=== PATIENT | female | born 1985 | race American Indian/Alaskan Native ===

== ENCOUNTER 2016-11-17 09:02 | Emergency (ER) | payer SELFPAY ==
[2016-11-17] MEDS ORDERED: DEPO-MEDROL IM ONE (13:04)
[2016-11-17] MEDS ORDERED: TORADOL IM ONE (13:04)
--- NOTE | 2016-11-17 13:09 | Emergency Department Report ---
ED General Adult HPI - General Chief complaint: Sore Throat Stated complaint: SORE THROAT/BODY ACHES/FEVER Time Seen by Provider: 11/17/16 12:15 Source: patient Mode of arrival: Ambulatory Limitations: No Limitations - History of Present Illness Initial comments: Patient complains of sore throat x one day. States it's painful to swallow, and throat feels like it's closing. Reports feeling feverish, neck and shoulder ache. Denies SOB, chest pain, cough, abdominal flank pain, symptoms. denies known sick contacts. Denies self treatment prior to ED presentation. LMP 4 years ago on Mirena. - Related Data Previous Rx's Medication Instructions Recorded Last Taken Type Amoxicillin/K Clav Tab [Augmentin 1 tab PO Q12HR #20 tab 11/17/16 Unknown Rx 875 mg] Allergies Allergy/AdvReac Type Severity Reaction Status Date / Time No Known Allergies Allergy Verified 11/17/16 09:36 ED Review of Systems ROS: Stated complaint: SORE THROAT/BODY ACHES/FEVER Other details as noted in HPI Comment: All other systems reviewed and negative ED Past Medical Hx - Past Medical History Previous Medical History?: No - Surgical History Hx Breast Surgery: Yes (reduction) - Social History Smoking Status: Never Smoker Substance Use Type: None - Medications Home Medications: Home Medications Medication Instructions Recorded Confirmed Last Taken Type Amoxicillin/K Clav Tab [Augmentin 1 tab PO Q12HR #20 tab 11/17/16 Unknown Rx 875 mg] ED Physical Exam - General Limitations: No Limitations General appearance: alert, in no apparent distress - Head Head exam: Present: atraumatic, normocephalic - Eye Eye exam: Present: normal appearance, PERRL, EOMI. Absent: scleral icterus, conjunctival injection, periorbital swelling, periorbital tenderness - ENT ENT exam: Present: mucous membranes moist, TM's normal bilaterally, normal external ear exam. Absent: normal orophraynx (b/l tonsillopharyngeal edema, erythema, and patchy exudates.) - Neck Neck exam: Present: normal inspection, full ROM, lymphadenopathy (b/l). Absent : tenderness, meningismus - Respiratory Respiratory exam: Present: normal lung sounds bilaterally. Absent: respiratory distress, wheezes, rales, rhonchi, stridor, accessory muscle use, decreased breath sounds, prolonged expiratory - Cardiovascular Cardiovascular Exam: Present: regular rate, normal rhythm - GI/Abdominal GI/Abdominal exam: Present: soft. Absent: distended, tenderness - Extremities Exam Extremities exam: Present: normal inspection, full ROM, normal capillary refill. Absent: pedal edema, joint swelling - Back Exam Back exam: Present: normal inspection, full ROM. Absent: tenderness, CVA tenderness (R), CVA tenderness (L) - Neurological Exam Neurological exam: Present: alert, oriented X3, normal gait, reflexes normal. Absent: motor sensory deficit - Psychiatric Psychiatric exam: Present: normal affect, normal mood - Skin Skin exam: Present: warm, dry, intact, normal color. Absent: rash, cyanosis, diaphoretic, erythema, urticaria, vesicles, pallor ED Course Vital Signs 11/17/16 09:37 Temperature 98.4 F Pulse Rate 102 H Respiratory 16 Rate Blood Pressure 129/82 O2 Sat by Pulse 99 Oximetry ED Medical Decision Making - Medical Decision Making 30-year-old female with acute strep pharyngitis. Patient is stable. She received Toradol 15 mg and Depo-Medrol 40 mg both IM. She will be DC'd on oral Augmentin (see rx). patient education, follow-up/referral, return instructions provided. She verbalized understanding and is agreeable to plan. Critical care attestation.: If time is entered above; I have spent that time in minutes in the direct care of this critically ill patient, excluding procedure time. ED Disposition Clinical Impression: Pharyngitis Qualifiers: Pharyngitis/tonsillitis etiology: streptococcus Qualified Code(s): J02.0 - Streptococcal pharyngitis Disposition: DISCHARGED TO HOME OR SELFCARE Is pt being admited?: No Does the pt Need Aspirin: No Condition: Stable Instructions: Strep Throat (ED) Additional Instructions: Follow instructions for care. Use medication as prescribed. May take OTC Tylenol or Motrin as needed for fever/body aches. Follow-up with your PCP for follow-up. Return to ED for new or worsening condition. Prescriptions: Amoxicillin/K Clav Tab [Augmentin 875 mg] 1 tab PO Q12HR #20 tab Referrals: PRIMARY CARE, [Primary Care Provider] - 2-3 Days [facility] [Outside] - 2-3 Days
[2016-11-17 14:30] VITALS: BP 116/67
== END 2016-11-17 13:45 | disposition home or self-care (01) ==
LOC: ED 09:02
DX: J02.0 Streptococcal pharyngitis (principal)
CPT/HCPCS: 87430; 96372; 99282; J1040; J1885

== ENCOUNTER 2019-10-17 09:46 | Emergency (ER) | payer OTHER, MEDICAID ==
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
[2019-10-17 11:56] VITALS: BP 130/90
== END 2019-10-17 11:55 | disposition home or self-care (01) ==
LOC: ED 09:46
DX: M25.512 Pain in left shoulder (principal); V49.49XA Driver injured in collision with other motor vehicles in traffic accident, initial encounter; X58.XXXA Exposure to other specified factors, initial encounter; Y93.89 Activity, other specified; Y92.488 Other paved roadways as the place of occurrence of the external cause; Y99.8 Other external cause status
CPT/HCPCS: 99282

== ENCOUNTER 2021-11-28 09:00 | Emergency (ER) | payer MEDICAID ==
[2021-11-28 09:22] VITALS: BP 139/88
[2021-11-28] MEDS ORDERED: PANTOPRAZOLE 40 MG INJ IV ONE (09:55)
[2021-11-28] MEDS ORDERED: ONDANSETRON 4 MG/2 ML INJ IV ONE (09:55)
[2021-11-28] MEDS ORDERED: FAMOTIDINE 20 MG/2 ML INJ IV ONE (09:55)
--- NOTE | 2021-11-28 10:09 | Emergency Department Report ---
ED Abdominal Pain HPI - General Chief Complaint: Abdominal Pain Stated Complaint: VOMITING BLOOD Time Seen by Provider: 11/28/21 09:46 Source: patient Mode of arrival: Ambulatory Limitations: No Limitations - History of Present Illness Initial Comments: 36-year-old obese female with no significant past medical history presents to the hospital complaining of abdominal pain, nausea, and vomiting blood x2. Patient states she only had coffee this morning. She developed moderate to severe sharp mid upper abdominal pain. She then vomited her coffee with specks of blood. Patient proceeded to go to work and continued to have intermittent upper 5/10 dull burning stomach ache without aggravating or alleviating factors. She had a second episode of vomiting with a increased amount of blood mixed with coffee. Patient states currently pain has resolved but he continues to come and go. She denies previous abdominal surgeries, endoscopy procedures, m sita, hematochezia, diarrhea, dysuria, or urinary frequency - Related Data Previous Rx's Medication Instructions Recorded Last Taken Type Amoxicillin/K Clav Tab [Augmentin 1 tab PO Q12HR #20 tab 11/17/16 Unknown Rx 875 mg] Cyclobenzaprine [Flexeril] 10 mg PO QHS PRN #20 tablet 10/17/19 Unknown Rx Ibuprofen [Motrin 800 MG tab] 800 mg PO Q8HR PRN #30 tablet 10/17/19 Unknown Rx Allergies Allergy/AdvReac Type Severity Reaction Status Date / Time No Known Allergies Allergy Verified 10/17/19 09:48 ED Review of Systems ROS: Stated complaint: VOMITING BLOOD Other details as noted in HPI Comment: All other systems reviewed and negative ED Past Medical Hx - Past Medical History Previous Medical History?: No - Surgical History Past Surgical History?: Yes Hx Breast Surgery: Yes (reduction) - Social History Smoking Status: Never Smoker - Medications Home Medications: Home Medications Medication Instructions Recorded Confirmed Last Taken Type Amoxicillin/K Clav Tab [Augmentin 1 tab PO Q12HR #20 tab 11/17/16 Unknown Rx 875 mg] Cyclobenzaprine [Flexeril] 10 mg PO QHS PRN #20 tablet 10/17/19 Unknown Rx Ibuprofen [Motrin 800 MG tab] 800 mg PO Q8HR PRN #30 tablet 10/17/19 Unknown Rx ED Physical Exam - General Limitations: No Limitations - Other Other exam information: General: No acute distress Head: Atraumatic Eyes: normal appearance ENT: Moist mucous membranes Neck: Normal appearance, no midline tenderness Chest: Clear to auscultation bilaterally CV: Regular rate and rhythm Abdomen: Soft, normal bowel sounds, mild suprapubic tenderness, nondistended, no rebound or guarding Back: Normal inspection Extremity: Normal inspection, full range of motion Neuro: Alert O x 3, no facial asymmetry, speech clear, no gross motor sensory deficit Psych: Appropriate behavior Skin: No rash ED Course Vital Signs 11/28/21 11/28/21 09:17 09:22 Temperature 98.4 F Pulse Rate 83 Respiratory 14 Rate Blood Pressure 139/88 O2 Sat by Pulse 98 Oximetry ED Medical Decision Making - Lab Data Result diagrams: 11/28/21 10:08 11/28/21 10:08 Lab Results 11/28/21 11/28/21 11/28/21 Range/Units 10:08 10:08 10:08 WBC 11.1 H (4.5-11.0) K/mm3 RBC 4.90 (3.65-5.03) M/mm3 Hgb 13.3 (10.1-14.3) gm/dl Hct 40.5 (30.3-42.9) % MCV 83 (79-97) fl MCH 27 L (28-32) pg MCHC 33 (30-34) % RDW 15.1 (13.2-15.2) % Plt Count 256 (140-440) K/mm3 Lymph % (Auto) 23.9 (13.4-35.0) % [place] % (Auto) 5.0 (0.0-7.3) % Eos % (Auto) 0.2 (0.0-4.3) % Baso % (Auto) 0.2 (0.0-1.8) % Lymph # (Auto) 2.6 (1.2-5.4) K/mm3 [place] # (Auto) 0.5 (0.0-0.8) K/mm3 Eos # (Auto) 0.0 (0.0-0.4) K/mm3 Baso # (Auto) 0.0 (0.0-0.1) K/mm3 Seg Neutrophils % 70.7 H (40.0-70.0) % Seg Neutrophils # 7.8 H (1.8-7.7) K/mm3 Sodium 140 (137-145) mmol/L Potassium 4.6 (3.6-5.0) mmol/L Chloride 103.3 (98-107) mmol/L Carbon Dioxide 24 (22-30) mmol/L Anion Gap 17 mmol/L BUN 9 (7-17) mg/dL Creatinine 0.7 (0.6-1.2) mg/dL Estimated GFR > 60 ml/min BUN/Creatinine Ratio 13 % Glucose 84 (65-100) mg/dL Calcium 9.0 (8.4-10.2) mg/dL Total Bilirubin 0.20 (0.1-1.2) mg/dL AST 17 (5-40) units/L ALT 13 (7-56) units/L Alkaline Phosphatase 63 (35-129) units/L Total Protein 7.2 (6.3-8.2) g/dL Albumin 4.0 (3.9-5) g/dL Albumin/Globulin Ratio 1.3 % Lipase 30 (13-60) units/L HCG, Qual Negative (Negative) - Medical Decision Making 36-year-old female presents to the hospital with symptoms suggestive of ga stritis/esophagitis with nausea, vomiting, hematemesis, and burning epigastric pain. Labs are unremarkable. CT ordered for further evaluation however, IV line infiltrated. IV insertion was attempted several times by CT staff prior to return to the emergency department. Patient declined further attempts and left prior to official discharge and conversation with me. I did manage to reach patient on the phone just after her elopement. She reports that she feels better with IV meds provided and she is no longer nauseated. She was encouraged to take [id number] Nexium and follow-up with GI. She also was told to monitor her stool for dark/black stool which is a sign of bleeding and return if symptoms worsen. Patient voices understanding and will follow up Critical Care Time: No Critical care attestation.: If time is entered above; I have spent that time in minutes in the direct care of this critically ill patient, excluding procedure time. ED Disposition Clinical Impression: Gastritis, Hematemesis Disposition: 07 LEFT AWOL/ELOPED Is pt being admited?: No Condition: Stable Instructions: Abdominal Pain (ED) Time of Disposition: 13:11
[2021-11-28 11:33] LABS: Basophils % (Auto) 0.2 % (0.0-1.8); Eosinophils % (Auto) 0.2 % (0.0-4.3); Hematocrit 40.5 % (30.3-42.9); Hemoglobin 13.3 gm/dl (10.1-14.3); Lymphocytes # (Auto) 2.6 K/mm3 (1.2-5.4); Lymphocytes % (Auto) 23.9 % (13.4-35.0); Mean Corpuscular HGB Conc 33 % (30-34); Mean Corpuscular Volume 83 fl (79-97); Monocytes # (Auto) 0.5 K/mm3 (0.0-0.8); Platelet Count 256 K/mm3 (140-440); Red Cell Distribution Width 15.1 % (13.2-15.2)
[2021-11-28 11:41] LABS: Alanine Aminotransferase 13 units/L (7-56); Blood Urea Nitrogen 9 mg/dL (7-17); Hemolysis Index 11
[2021-11-28 11:42] LABS: BUN/Creatinine Ratio 13
[2021-11-28] MEDS ORDERED: SODIUM CHLORIDE 0.9% 1000 ML 1,000 ML IV ONE (11:45)
[2021-11-28 13:16] LABS: Bilirubin,Urine NEG (Negative); Blood,Urine NEG (Negative); Color,Urine Yellow (Yellow); Mucus,Urine FEW /HPF; Protein,Urine <15 mg/dL mg/dL (Negative); Urobilinogen,Urine < 2.0 mg/dL (<2.0); WBC,Urine < 1.0 /HPF (0.0-6.0)
== END 2021-11-28 19:03 | disposition left against medical advice (07) ==
LOC: ED 09:00
DX: K29.70 Gastritis, unspecified, without bleeding (principal); K92.0 Hematemesis
CPT/HCPCS: 36415; 80053; 81001; 83690; 84703; 85025; 96361; 96374; 96375; 99283; C9113; J2405; J3490

== ENCOUNTER 2022-06-19 09:49 | Outpatient (CLI) | payer MEDICAID ==
--- NOTE | 2022-06-19 11:38 | Ultrasound Report ---
ULTRASOUND BIOPHYSICAL PROFILE INDICATION / CLINICAL INFORMATION: decrease movement. Clinical Gestational Age (GA): 31.4 weeks.days COMPARISON: None available. FINDINGS: BREATHING MOVEMENT = 2 GROSS BODY MOVEMENT = 2 TONE = 2 QUALITATIVE AMNIOTIC FLUID VOLUME = 2 TOTAL BIOPHYSICAL SCORE = 8/8 HEART RATE (beats per minute): 154 PRESENTATION: Cephalic. ADDITIONAL FINDINGS: None. IMPRESSION: 1. Biophysical Score = 8/8 Signer Name: Miguel Hernandez MD Signed: 06/19/2022 11:34 AM Workstation Name: [id number]
[2022-06-19] MEDS ORDERED: LACTATED RINGERS 500 ML IV ONE (12:00)
--- NOTE | 2022-06-19 12:32 | Event Note ---
Date: 06/19/22 Pt in triage for decrease movement. BPP 8/8 and category 1 NST reactive. Pt states feeling baby move now. Discharge ordered, f/u in a week at the office. Call office if any concerns prior to appt.
[2022-06-19 12:40] VITALS: BP 105/52
== END 2022-06-19 13:18 | disposition home or self-care (01) ==
LOC: TRG 09:49 → APU 09:50 → TRG 13:18
PROVIDERS: ATTEND Obstetrics & Gynecology
DX: O36.8130 Decreased fetal movements, third trimester, not applicable or unspecified (principal); Z3A.31 31 weeks gestation of pregnancy
CPT/HCPCS: 76819